=== PATIENT | male | born 1950 | race Two or more races ===

== ENCOUNTER 2020-10-29 18:51 | Inpatient (IN) | payer MEDICARE, MEDICAID ==
[~2020-10-29] VITALS: Ht 172.7 cm; Wt 68.0 kg
[2020-10-29 19:38] LABS: BASOPHILS % 0.3 % (0.0-2.0); EOSINOPHILS % 0.5 % (0.0-5.0); HEMATOCRIT. 37.6 % (42.0-52.0); HEMOGLOBIN. 12.2 g/dL (14.0-18.0); LYMPHOCYTES % 13.3 % (20.0-50.0); MEAN CORPUSCULAR HEMOGLOBIN 29.6 pg (28.0-32.0); MEAN CORPUSCULAR VOLUME 91.3 fL (80.0-94.0); NEUTROPHILS % 79.9 % (40.0-76.0); PLATELET 98 x1000/uL (130-400); RED BLOOD CELL COUNT 4.12 mill/uL (4.7-6.1); RED CELL DISTRIBUTION WIDTH 17.3 % (11.6-14.6)
[2020-10-29 19:45] LABS: CHLORIDE 108 mEq/L (98-107)
[2020-10-29 19:49] LABS: ETHANOL BLOOD < 10 mg/dL
[2020-10-29 23:25] LABS: CLARITY URINE TURBID (CLEAR); COLOR URINE YELLOW (YELLOW); KETONES URINE NEGATIVE (NEGATIVE); LEUKOCYTE ESTERASE URINE 3+ (NEGATIVE); NITRITE URINE POSITIVE (NEGATIVE); OCCULT BLOOD URINE 2+ (NEGATIVE); PROTEIN URINE 1+ (NEGATIVE); SPECIFIC GRAVITY URINE 1.023 (1.005-1.030)
[2020-10-29 23:42] LABS: *AMPHETAMINES SCREEN URINE NEGATIVE (NEGATIVE)
[2020-10-29 23:43] LABS: *BARBITURATES SCREEN URINE NEGATIVE (NEGATIVE); *BENZODIAZEPINES SCREEN URINE NEGATIVE (NEGATIVE); *COCAINE SCREEN URINE NEGATIVE (NEGATIVE); METHADONE URINE SCREEN NEGATIVE (NEGATIVE); OPIATES URINE SCREEN NEGATIVE (NEGATIVE); PHENCYCLIDINE URINE SCREEN NEGATIVE (NEGATIVE)
[2020-10-29 23:44] LABS: CANNABINOID URINE SCREEN NEGATIVE (NEGATIVE)
[2020-10-29] MEDS ORDERED: ONDANSETRON HCL 4MG/2ML INJ IV PRN (23:45)
[2020-10-29] MEDS ORDERED: MAGNESIUM/ALUMINUM HYDROXIDE/SIMETHICONE 30ML UDC PO PRN (23:45)
[2020-10-29] MEDS ORDERED: DOCUSATE SODIUM 100MG CAPSULE PO PRN (23:45)
[2020-10-29] MEDS ORDERED: ACETAMINOPHEN 650MG SUPP PR PRN ×2 (23:45)
[2020-10-29] MEDS ORDERED: GUAIFENESIN 200MG/10ML SUGAR FREE UDC PO PRN (23:45)
[2020-10-29] MEDS ORDERED: ACETAMINOPHEN 650MG/20.3ML UDC GT PRN ×2 (23:45)
[2020-10-30] MEDS: DEXT 5%/0.45% NACL 1000ML 1,000 ML IV SCH ×2 (00:06→17:29)
[2020-10-30 04:00] VITALS: BP_SYST 161; BP_DIAS 69; BP_DIAS 89
[2020-10-30 06:56] VITALS: BP 152/78
[2020-10-30 07:13] LABS: BASOPHILS % 0.2 % (0.0-2.0); EOSINOPHILS % 0.9 % (0.0-5.0); HEMATOCRIT. 37.8 % (42.0-52.0); HEMOGLOBIN. 12.3 g/dL (14.0-18.0); MEAN CORPUSCULAR HEMOGLOBIN 29.6 pg (28.0-32.0); MEAN PLATELET VOLUME 8.2 fl (7.4-10.4); MONOCYTES % 9.1 % (2.0-8.0); NEUTROPHILS % 70.8 % (40.0-76.0); PLATELET 98 x1000/uL (130-400); RED BLOOD CELL COUNT 4.15 mill/uL (4.7-6.1); RED CELL DISTRIBUTION WIDTH 16.9 % (11.6-14.6)
[2020-10-30 07:19] LABS: CHLORIDE 108 mEq/L (98-107)
[2020-10-30 07:27] LABS: LDL CHOLESTEROL 68 mg/dL (5-100)
[2020-10-30 07:28] LABS: CREATINE KINASE 37 IU/L (39-308); CREATINE KINASE MB FRACTION 1.5 ng/mL (0.5-3.6); HDL CHOLESTEROL 36 mg/dL (40-59)
[2020-10-30 08:00] VITALS: BP 153/63
[2020-10-30] MEDS ORDERED: ATOR-2 PO (08:32)
[2020-10-30] MEDS ORDERED: TAMS-11 PO (08:32)
[2020-10-30] MEDS ORDERED: APIX5TAB PO (08:32)
[2020-10-30] MEDS ORDERED: ALLO300T2 PO (08:32)
[2020-10-30] MEDS ORDERED: PANT40TA51 PO (08:32)
[2020-10-30] MEDS ORDERED: SERT-422 PO (08:32)
[2020-10-30] MEDS ORDERED: PRED5TAB PO (08:32)
[2020-10-30 09:58] LABS: T4 FREE 1.65 ng/dL (0.76-1.46)
[2020-10-30] MEDS: LEVOFLOXACIN 500MG TABLET PO SCH (11:11)
[2020-10-30 16:11] LABS: CREATINE KINASE MB FRACTION 2.1 ng/mL (0.5-3.6)
[2020-10-30] MEDS: APIXABAN 5 MG TABLET PO SCH (17:29)
[2020-10-30 20:00] VITALS: BP 174/52
[2020-10-30] MEDS: ATORVASTATIN CALCIUM 40MG TABLET PO SCH (21:34)
[2020-10-30] MEDS: PANTOPRAZOLE 40MG DR TABLET PO SCH (21:34)
[2020-10-30] MEDS: TAMSULOSIN HCL 0.4MG SR CAPSULE PO SCH (21:34)
[2020-10-30] MEDS: CLONIDINE 0.1MG TABLET PO PRN (21:37)
[2020-10-31] VITALS: BP 148/54
[2020-10-31 04:00] VITALS: BP 137/55
[2020-10-31] MEDS: DEXT 5%/0.45% NACL 1000ML 1,000 ML IV SCH ×2 (08:13→15:45)
[2020-10-31] MEDS: APIXABAN 5 MG TABLET PO SCH ×2 (08:14→17:15)
[2020-10-31] MEDS: ALLOPURINOL 300 MG TABLET PO SCH (08:14)
[2020-10-31] MEDS: SERTRALINE HCL 50MG TABLET PO SCH (08:14)
[2020-10-31] MEDS: PREDNISONE 5MG TABLET PO SCH (08:16)
[2020-10-31 08:30] VITALS: BP 154/58
[2020-10-31] MEDS: LEVOFLOXACIN 500MG TABLET PO SCH (11:08)
[2020-10-31 12:00] VITALS: BP 138/79
[2020-10-31 15:57] LABS: BASOPHILS % 0.1 % (0.0-2.0); EOSINOPHILS % 0.3 % (0.0-5.0); HEMATOCRIT. 35.9 % (42.0-52.0); HEMOGLOBIN. 11.8 g/dL (14.0-18.0); LYMPHOCYTES % 14.5 % (20.0-50.0); MEAN CORPUSCULAR HEMOGLOBIN 29.8 pg (28.0-32.0); MEAN CORPUSCULAR VOLUME 90.5 fL (80.0-94.0); MEAN PLATELET VOLUME 8.2 fl (7.4-10.4); MONOCYTES % 6.3 % (2.0-8.0); NEUTROPHILS % 78.8 % (40.0-76.0); PLATELET 99 x1000/uL (130-400); RED BLOOD CELL COUNT 3.97 mill/uL (4.7-6.1); RED CELL DISTRIBUTION WIDTH 16.7 % (11.6-14.6)
[2020-10-31 16:00] VITALS: BP 144/66
[2020-10-31 16:16] LABS: CHLORIDE 106 mEq/L (98-107)
[2020-10-31] MEDS: TAMSULOSIN HCL 0.4MG SR CAPSULE PO SCH (21:31)
[2020-10-31] MEDS: PANTOPRAZOLE 40MG DR TABLET PO SCH (21:32)
[2020-10-31] MEDS: ATORVASTATIN CALCIUM 40MG TABLET PO SCH (21:32)
[2020-11-01] VITALS (7 sets, daily range): BP systolic 114–174; BP diastolic 47–87
[2020-11-01] MEDS: DEXT 5%/0.45% NACL 1000ML 1,000 ML IV SCH ×2 (04:11→17:18)
[2020-11-01] MEDS: CLONIDINE 0.1MG TABLET PO PRN (05:27)
[2020-11-01] MEDS: ALLOPURINOL 300 MG TABLET PO SCH (08:04)
[2020-11-01] MEDS: PREDNISONE 5MG TABLET PO SCH (08:04)
[2020-11-01] MEDS: SERTRALINE HCL 50MG TABLET PO SCH (08:04)
[2020-11-01] MEDS: APIXABAN 5 MG TABLET PO SCH ×2 (08:04→17:18)
[2020-11-01] MEDS: LEVOFLOXACIN 500MG TABLET PO SCH (11:14)
[2020-11-01] MEDS: TAMSULOSIN HCL 0.4MG SR CAPSULE PO SCH (21:27)
[2020-11-01] MEDS: ATORVASTATIN CALCIUM 40MG TABLET PO SCH (21:27)
[2020-11-01] MEDS: PANTOPRAZOLE 40MG DR TABLET PO SCH (21:27)
== END 2020-11-01 22:00 | disposition short-term general hospital (02) | DRG 391 ==
LOC: ER 19:32 → MICUSO 22:42 → 6WST 10-30 01:38
PROVIDERS: ADMIT Family Medicine; ATTEND Family Medicine
DX: K21.9 Gastro-esophageal reflux disease without esophagitis (principal); G93.41 Metabolic encephalopathy; N39.0 Urinary tract infection, site not specified; E44.0 Moderate protein-calorie malnutrition; I25.10 Atherosclerotic heart disease of native coronary artery without angina pectoris; D64.9 Anemia, unspecified; I35.0 Nonrheumatic aortic (valve) stenosis; F32.9 Major depressive disorder, single episode, unspecified; E78.5 Hyperlipidemia, unspecified; M10.9 Gout, unspecified; N40.0 Benign prostatic hyperplasia without lower urinary tract symptoms; D69.6 Thrombocytopenia, unspecified; I87.8 Other specified disorders of veins; I87.2 Venous insufficiency (chronic) (peripheral); Z20.822 Contact with and (suspected) exposure to COVID-19; I73.9 Peripheral vascular disease, unspecified; J44.9 Chronic obstructive pulmonary disease, unspecified; I10 Essential (primary) hypertension; I48.0 Paroxysmal atrial fibrillation; Z86.73 Personal history of transient ischemic attack (TIA), and cerebral infarction without residual deficits; Z79.899 Other long term (current) drug therapy; Z79.01 Long term (current) use of anticoagulants; Z68.22 Body mass index [BMI] 22.0-22.9, adult
CPT/HCPCS: 36415; 71045; 80053; 80061; 80305; 80320; 81003; 82550; 82553; 82962; 83036; 83605; 83735; 83880; 84439; 84443; 84484; 85025; 85379; 87426; 93005; 93306; 93308; 93923; 93970; 99285; J7512; G0480

== ENCOUNTER 2020-11-25 20:27 | Inpatient (IN) | payer MEDICARE, MEDICAID ==
[~2020-11-25] VITALS: Ht 167.6 cm; Wt 78.0 kg
[~2020-11-25 20:27] MED LIST: ALLO300T2 PO; APIX5TAB PO; ATOR-2 PO; PANT40TA51 PO; PRED5TAB PO; SERT-422 PO; TAMS-11 PO
[2020-11-25] MEDS ORDERED: DEXT 5%/0.9% NACL 1,000 ML IV ONE (22:15)
[2020-11-25] MEDS ORDERED: BLOOD SUGAR DIAGNOSTIC STRIP TEST ONE (22:15)
[2020-11-25] MEDS ORDERED: DEXTROSE 50% WATER 50ML SYRINGE IV ONE (22:30)
[2020-11-25] MEDS ORDERED: PIPERACILLIN/TAZ 3.375G PREMIX 50 ML IV ONE (22:30)
[2020-11-25 23:31] LABS: CLARITY URINE CLEAR (CLEAR); COLOR URINE YELLOW (YELLOW); KETONES URINE NEGATIVE (NEGATIVE); LEUKOCYTE ESTERASE URINE TRACE (NEGATIVE); NITRITE URINE POSITIVE (NEGATIVE); OCCULT BLOOD URINE NEGATIVE (NEGATIVE); PROTEIN URINE NEGATIVE (NEGATIVE); SPECIFIC GRAVITY URINE 1.024 (1.005-1.030)
[2020-11-25 23:53] LABS: BASOPHILS % 0.4 % (0.0-2.0); HEMATOCRIT. 39.5 % (42.0-52.0); HEMOGLOBIN. 12.5 g/dL (14.0-18.0); LYMPHOCYTES % 18.1 % (20.0-50.0); MEAN CORPUSCULAR HEMOGLOBIN 29.1 pg (28.0-32.0); MEAN CORPUSCULAR VOLUME 91.8 fL (80.0-94.0); MEAN PLATELET VOLUME 8.1 fl (7.4-10.4); NEUTROPHILS % 71.5 % (40.0-76.0); PLATELET 133 x1000/uL (130-400); RED CELL DISTRIBUTION WIDTH 16.9 % (11.6-14.6)
[2020-11-26] VITALS (7 sets, daily range): BP systolic 112–167; BP diastolic 52–77
[2020-11-26] LABS: CHLORIDE 108 mEq/L (98-107)
[2020-11-26 00:07] LABS: ETHANOL BLOOD < 10 mg/dL
[2020-11-26 00:10] LABS: *AMPHETAMINES SCREEN URINE NEGATIVE (NEGATIVE); *BARBITURATES SCREEN URINE NEGATIVE (NEGATIVE)
[2020-11-26 00:11] LABS: *BENZODIAZEPINES SCREEN URINE NEGATIVE (NEGATIVE); *COCAINE SCREEN URINE NEGATIVE (NEGATIVE)
[2020-11-26 00:12] LABS: METHADONE URINE SCREEN NEGATIVE (NEGATIVE); OPIATES URINE SCREEN NEGATIVE (NEGATIVE); PHENCYCLIDINE URINE SCREEN NEGATIVE (NEGATIVE)
[2020-11-26 00:13] LABS: CANNABINOID URINE SCREEN NEGATIVE (NEGATIVE)
[2020-11-26] MEDS: HYDRALAZINE HCL 10MG TABLET PO SCH ×3 (05:34→17:04)
[2020-11-26 06:42] LABS: CHLORIDE 106 mEq/L (98-107)
[2020-11-26 06:48] LABS: HEMATOCRIT 40.7 % (42.0-52.0); HEMOGLOBIN 12.9 g/dL (14.0-18.0); MEAN CORPUSCULAR HEMOGLOBIN 29.1 pg (28.0-32.0); MEAN CORPUSCULAR VOLUME 91.6 fL (80.0-94.0); RED BLOOD CELL COUNT 4.44 mill/uL (4.7-6.1); RED CELL DISTRIBUTION WIDTH 16.7 % (11.6-14.6)
[2020-11-26] MEDS ORDERED: ENOXAPARIN 40MG/0.4ML SYR SUBCUT SCH ×2 (09:00→16:00)
[2020-11-26] MEDS ORDERED: ATOR-2 PO (09:31)
[2020-11-26 11:00] LABS: PLATELET 124 x1000/uL (130-400)
[2020-11-26] MEDS ORDERED: ACETAMINOPHEN 325MG TABLET PO PRN (16:00)
[2020-11-26] MEDS ORDERED: ACETAMINOPHEN 650MG SUPP PR PRN ×2 (16:00)
[2020-11-26] MEDS ORDERED: CLONIDINE 0.1MG TABLET PO PRN (16:00)
[2020-11-26] MEDS ORDERED: NA PHOS,M-B/NA PHOS,DI-BA ENEMA 118ML PR PRN (16:00)
[2020-11-26] MEDS ORDERED: DIPHENHYDRAMINE 50MG/ML VIAL IV PRN (16:00)
[2020-11-26] MEDS ORDERED: ACETAMINOPHEN 650MG/20.3ML UDC GT PRN ×2 (16:00)
[2020-11-26] MEDS: ALLOPURINOL 300 MG TABLET PO SCH (17:00)
[2020-11-26] MEDS: DEXT 5%/0.45% NACL 1000ML 1,000 ML IV SCH (17:00)
[2020-11-26] MEDS: PREDNISONE 5MG TABLET PO SCH (17:04)
[2020-11-26] MEDS: TAMSULOSIN HCL 0.4MG SR CAPSULE PO SCH (20:23)
[2020-11-26] MEDS: APIXABAN 5 MG TABLET PO SCH (20:24)
[2020-11-26] MEDS ORDERED: PANTOPRAZOLE 40MG DR TABLET PO SCH (21:00)
[2020-11-26 23:37] LABS: CREATINE KINASE MB FRACTION 1.8 ng/mL (0.5-3.6)
[2020-11-27] VITALS: BP 178/79
[2020-11-27] MEDS: HYDRALAZINE HCL 10MG TABLET PO SCH ×4 (00:13→17:36)
[2020-11-27 04:00] VITALS: BP 108/52
[2020-11-27] MEDS: DEXT 5%/0.45% NACL 1000ML 1,000 ML IV SCH ×2 (06:23→18:11)
[2020-11-27] MEDS ORDERED: DEXTROSE 50% WATER 50ML SYRINGE IV PRN (07:15)
[2020-11-27 07:19] LABS: BASOPHILS % 0.2 % (0.0-2.0); EOSINOPHILS % 0.8 % (0.0-5.0); HEMATOCRIT. 36.1 % (42.0-52.0); HEMOGLOBIN. 11.5 g/dL (14.0-18.0); LYMPHOCYTES % 27.8 % (20.0-50.0); MEAN PLATELET VOLUME 8.5 fl (7.4-10.4); MONOCYTES % 6.3 % (2.0-8.0); NEUTROPHILS % 64.9 % (40.0-76.0); PLATELET 126 x1000/uL (130-400); RED BLOOD CELL COUNT 3.97 mill/uL (4.7-6.1); RED CELL DISTRIBUTION WIDTH 16.5 % (11.6-14.6)
[2020-11-27 08:00] VITALS: BP 126/59
[2020-11-27 08:05] LABS: CHLORIDE 106 mEq/L (98-107)
[2020-11-27 08:54] LABS: LDL CHOLESTEROL 66 mg/dL (5-100)
[2020-11-27 08:55] LABS: CREATINE KINASE 38 IU/L (39-308); HDL CHOLESTEROL 36 mg/dL (40-59)
[2020-11-27 08:57] LABS: CREATINE KINASE MB FRACTION 1.5 ng/mL (0.5-3.6)
[2020-11-27] MEDS: APIXABAN 5 MG TABLET PO SCH ×2 (09:01→22:05)
[2020-11-27] MEDS: ALLOPURINOL 300 MG TABLET PO SCH (09:01)
[2020-11-27] MEDS: SERTRALINE HCL 50MG TABLET PO SCH (09:02)
[2020-11-27] MEDS: PREDNISONE 5MG TABLET PO SCH (09:02)
[2020-11-27] MEDS: ACETAMINOPHEN 325MG TABLET PO PRN ×2 (09:02→18:06)
[2020-11-27 12:00] VITALS: BP 128/72
[2020-11-27] MEDS: BLOOD SUGAR DIAGNOSTIC STRIP TEST SCH ×3 (12:25→21:00)
[2020-11-27 16:00] VITALS: BP 108/51
[2020-11-27 20:00] VITALS: BP 133/51
[2020-11-27] MEDS: FAMOTIDINE 20MG TABLET PO SCH (22:05)
[2020-11-27] MEDS: TAMSULOSIN HCL 0.4MG SR CAPSULE PO SCH (22:05)
[2020-11-28] VITALS (7 sets, daily range): BP systolic 96–151; BP diastolic 47–68
[2020-11-28] MEDS: HYDRALAZINE HCL 10MG TABLET PO SCH ×3 (00:17→12:00)
[2020-11-28] MEDS: ACETAMINOPHEN 325MG TABLET PO PRN (00:18)
[2020-11-28] MEDS: BLOOD SUGAR DIAGNOSTIC STRIP TEST SCH ×2 (05:20→11:32)
[2020-11-28] MEDS ORDERED: ZINC SULFATE 220 MG ( 50 ) CAPSULE PO SCH (09:00)
[2020-11-28] MEDS ORDERED: ASCORBIC ACID 250 MG TABLET PO SCH (09:00)
[2020-11-28] MEDS: DEXT 5%/0.45% NACL 1000ML 1,000 ML IV SCH (09:52)
[2020-11-28] MEDS: PREDNISONE 5MG TABLET PO SCH (09:53)
[2020-11-28] MEDS: ALLOPURINOL 300 MG TABLET PO SCH (09:53)
[2020-11-28] MEDS: SERTRALINE HCL 50MG TABLET PO SCH (09:53)
[2020-11-28] MEDS: APIXABAN 5 MG TABLET PO SCH (09:53)
[2020-11-28] MEDS: FAMOTIDINE 20MG TABLET PO SCH (09:53)
== END 2020-11-28 16:10 | disposition home health service (06) | DRG 70 ==
LOC: ER 20:27 → 8WST 22:18 → ENRESERV 22:48
PROVIDERS: ADMIT Family Medicine; ATTEND Family Medicine
PROC: 0HBRXZZ Excision of Toe Nail, External Approach (ICD-10-PCS; principal; 2020-11-27)
PROC: 0HBRXZZ Excision of Toe Nail, External Approach (ICD-10-PCS; 2020-11-27)
PROC: 0HBRXZZ Excision of Toe Nail, External Approach (ICD-10-PCS; 2020-11-27)
PROC: 0HBRXZZ Excision of Toe Nail, External Approach (ICD-10-PCS; 2020-11-27)
PROC: 0HBRXZZ Excision of Toe Nail, External Approach (ICD-10-PCS; 2020-11-27)
PROC: 0HBRXZZ Excision of Toe Nail, External Approach (ICD-10-PCS; 2020-11-27)
PROC: 0HBRXZZ Excision of Toe Nail, External Approach (ICD-10-PCS; 2020-11-27)
PROC: 0HBRXZZ Excision of Toe Nail, External Approach (ICD-10-PCS; 2020-11-27)
PROC: 0HBRXZZ Excision of Toe Nail, External Approach (ICD-10-PCS; 2020-11-27)
PROC: 0HBRXZZ Excision of Toe Nail, External Approach (ICD-10-PCS; 2020-11-27)
DX: G93.41 Metabolic encephalopathy (principal); L89.153 Pressure ulcer of sacral region, stage 3; E44.0 Moderate protein-calorie malnutrition; I69.354 Hemiplegia and hemiparesis following cerebral infarction affecting left non-dominant side; J98.11 Atelectasis; E16.2 Hypoglycemia, unspecified; D64.9 Anemia, unspecified; E78.5 Hyperlipidemia, unspecified; J44.9 Chronic obstructive pulmonary disease, unspecified; N40.0 Benign prostatic hyperplasia without lower urinary tract symptoms; R13.10 Dysphagia, unspecified; K21.9 Gastro-esophageal reflux disease without esophagitis; M10.9 Gout, unspecified; I10 Essential (primary) hypertension; I87.8 Other specified disorders of veins; L60.2 Onychogryphosis; I87.2 Venous insufficiency (chronic) (peripheral); I73.9 Peripheral vascular disease, unspecified; Z74.01 Bed confinement status; Z79.01 Long term (current) use of anticoagulants; Z79.899 Other long term (current) drug therapy; Z68.27 Body mass index [BMI] 27.0-27.9, adult
CPT/HCPCS: 36415; 71045; 80048; 80053; 80061; 80305; 80320; 81003; 82040; 82140; 82550; 82553; 82962; 83605; 84134; 84484; 85025; 85027; 87077; 87186; 92610; 93005; 96365; 99291; J1650; J2543; J7042; J7070; J7512; G0480

== ENCOUNTER 2021-11-02 03:49 | Inpatient (IN) | payer MEDICARE, MEDICAID ==
[~2021-11-02] VITALS: Ht 167.6 cm; Wt 65.8 kg
[2021-11-02] VITALS (8 sets, daily range): BP systolic 117–163; BP diastolic 69–92
[2021-11-02] MEDS ORDERED: ALBUTEROL (0.083%) 2.5MG/3ML NEB HHN STA (04:03)
[2021-11-02] MEDS ORDERED: VANCOMYCIN 1G PREMIX 200 ML IV SCH (04:15)
[2021-11-02] MEDS ORDERED: PIPERACILLIN/TAZ 3.375G PREMIX 50 ML IV ONE (04:15)
[2021-11-02] MEDS ORDERED: DEXAMETHASONE 4MG/ML 1ML VIAL IV ONE (04:15)
[2021-11-02] MEDS ORDERED: SODIUM CHLORIDE 0.9% 500 ML IV ONE (04:15)
[2021-11-02 05:25] LABS: BASOPHILS % 0.2 % (0.0-2.0); EOSINOPHILS % 0.6 % (0.0-5.0); HEMATOCRIT. 40.7 % (42.0-52.0); LYMPHOCYTES % 20.1 % (20.0-50.0); MEAN CORPUSCULAR HEMOGLOBIN 28.6 pg (28.0-32.0); MEAN CORPUSCULAR VOLUME 89.9 fL (80.0-94.0); MONOCYTES % 5.3 % (2.0-8.0); NEUTROPHILS % 73.8 % (40.0-76.0); PLATELET 144 x1000/uL (130-400); RED BLOOD CELL COUNT 4.53 mill/uL (4.7-6.1); RED CELL DISTRIBUTION WIDTH 19.1 % (11.6-14.6)
[2021-11-02 05:30] LABS: CHLORIDE 106 mEq/L (98-107)
[2021-11-02 05:35] LABS: ETHANOL BLOOD < 10 mg/dL
[2021-11-02 05:40] LABS: CREATINE KINASE 55 IU/L (39-308)
[2021-11-02] MEDS ORDERED: FUROSEMIDE 20MG/2ML VIAL IVP NR (06:15)
[2021-11-02 07:08] LABS: CLARITY URINE CLOUDY (CLEAR); COLOR URINE DARK YELLOW (YELLOW); KETONES URINE NEGATIVE (NEGATIVE); LEUKOCYTE ESTERASE URINE 3+ (NEGATIVE); NITRITE URINE NEGATIVE (NEGATIVE); OCCULT BLOOD URINE 2+ (NEGATIVE); PROTEIN URINE 1+ (NEGATIVE); SPECIFIC GRAVITY URINE 1.025 (1.005-1.030)
[2021-11-02] MEDS ORDERED: MAGNESIUM/ALUMINUM HYDROXIDE/SIMETHICONE 30ML UDC PO PRN (07:15)
[2021-11-02] MEDS ORDERED: DOCUSATE SODIUM 100MG CAPSULE PO PRN (07:15)
[2021-11-02] MEDS ORDERED: NITROGLYCERIN 0.4MG TABLET SL SL PRN (07:15)
[2021-11-02] MEDS ORDERED: ZOLPIDEM TARTRATE 5MG TABLET PO PRN (07:15)
[2021-11-02] MEDS ORDERED: ACETAMINOPHEN 325MG TABLET PO PRN ×2 (07:15)
[2021-11-02] MEDS ORDERED: IPRATROPIUM/ALBUTEROL 0.5-3(2.5)MG/3ML NEB NEB PRN (07:15)
[2021-11-02] MEDS ORDERED: GUAIFENESIN 200MG/10ML SUGAR FREE UDC PO PRN (07:15)
[2021-11-02] MEDS ORDERED: ONDANSETRON HCL 4MG/2ML INJ IV PRN (07:15)
[2021-11-02] MEDS ORDERED: CLONIDINE 0.1MG TABLET PO PRN (07:15)
[2021-11-02 07:41] LABS: *AMPHETAMINES SCREEN URINE NEGATIVE (NEGATIVE); *BARBITURATES SCREEN URINE NEGATIVE (NEGATIVE); *BENZODIAZEPINES SCREEN URINE PRESUMTIVE POSITIVE (NEGATIVE); *COCAINE SCREEN URINE NEGATIVE (NEGATIVE); CANNABINOID URINE SCREEN NEGATIVE (NEGATIVE); METHADONE URINE SCREEN NEGATIVE (NEGATIVE); OPIATES URINE SCREEN NEGATIVE (NEGATIVE); PHENCYCLIDINE URINE SCREEN NEGATIVE (NEGATIVE)
[2021-11-02] MEDS ORDERED: CARVEDILOL 3.125 MG TABLET PO SCH (09:00)
[2021-11-02] MEDS: SPIRONOLACTONE 25MG TABLET PO SCH (09:00)
[2021-11-02] MEDS: APIXABAN 5 MG TABLET PO SCH (09:00)
[2021-11-02] MEDS: FAMOTIDINE 20MG TABLET PO SCH (09:00)
[2021-11-02] MEDS: ASPIRIN 81MG EC TABLET PO SCH (09:00)
[2021-11-02 09:06] LABS: FOLIC ACID (FOLATE) SERUM 8.2 ng/mL (>5.38)
[2021-11-02] MEDS ORDERED: ADENOSINE 3 MG/ML 2ML VIAL IV ONE ×2 (10:30)
[2021-11-02 10:42] LABS: BG BASE EXCESS 0.7 mmol/L (-2.0-2.0); BG CARBOXYHEMOGLOBIN 1.1 % (0.5-1.5); BG DEOXYHEMOGLOBIN 5.3 % (0.0-5.0); BG FRACTION INSPIRED OXYGEN 30; BG HCO3 ACT 26.9 mmol/L (22.0-26.0); BG METHEMOGLOBIN 0.3 % (0.0-1.5); BG OXYGEN SATURATION 94.6 % (92.0-98.5); BG OXYHEMOGLOBIN 93.3 % (94.0-97.0); BG PCO2 48.9 mmHg (35.0-45.0); BG PH 7.358 (7.350-7.450); BG PO2 74.5 mmHg (75.0-100.0); BG SAMPLE SITE LEFT RADIAL; BG TOTAL RESPIRATORY RATE 26 b/min; BG VENT MODE MASK - BIPAP
[2021-11-02] MEDS ORDERED: METOPROLOL TARTRATE 5MG/5ML VIAL IV PRN (12:30)
[2021-11-02] MEDS ORDERED: DIGOXIN 500MCG/2ML AMP IV SCH (13:45)
[2021-11-02] MEDS: IPRATROPIUM/ALBUTEROL 0.5-3(2.5)MG/3ML NEB HHN SCH (14:00)
[2021-11-02] MEDS: FUROSEMIDE 40MG/4ML VIAL IVP SCH (18:24)
[2021-11-02] MEDS: DIGOXIN 500MCG/2ML AMP IV SCH (18:25)
[2021-11-03] VITALS (18 sets, daily range): BP systolic 97–145; BP diastolic 50–89
[2021-11-03 00:20] LABS: CREATINE KINASE MB FRACTION 3.5 ng/mL (0.5-3.6)
[2021-11-03] MEDS: SPIRONOLACTONE 25MG TABLET PO SCH ×3 (00:41→20:44)
[2021-11-03] MEDS: APIXABAN 5 MG TABLET PO SCH ×3 (00:41→20:46)
[2021-11-03] MEDS: FAMOTIDINE 20MG TABLET PO SCH ×3 (00:42→20:44)
[2021-11-03] MEDS: IPRATROPIUM/ALBUTEROL 0.5-3(2.5)MG/3ML NEB HHN SCH ×4 (01:40→21:24)
[2021-11-03] MEDS: METOPROLOL TARTRATE 25MG TABLET PO SCH ×3 (02:20→21:00)
[2021-11-03] MEDS: FUROSEMIDE 40MG/4ML VIAL IVP SCH ×2 (06:28→18:22)
[2021-11-03 08:38] LABS: CHLORIDE 104 mEq/L (98-107)
[2021-11-03 08:43] LABS: BASOPHILS % 0.1 % (0.0-2.0); EOSINOPHILS % 0.2 % (0.0-5.0); HEMATOCRIT. 38.4 % (42.0-52.0); HEMOGLOBIN. 12.9 g/dL (14.0-18.0); LYMPHOCYTES % 12.7 % (20.0-50.0); MEAN CORPUSCULAR HEMOGLOBIN 29.6 pg (28.0-32.0); MEAN PLATELET VOLUME 7.8 fl (7.4-10.4); MONOCYTES % 7.1 % (2.0-8.0); NEUTROPHILS % 79.9 % (40.0-76.0); PLATELET 143 x1000/uL (130-400); RED BLOOD CELL COUNT 4.37 mill/uL (4.7-6.1); RED CELL DISTRIBUTION WIDTH 19.1 % (11.6-14.6)
[2021-11-03 08:46] LABS: PHOSPHORUS 3.6 mg/dL (2.5-4.9)
[2021-11-03 08:51] LABS: CREATINE KINASE 59 IU/L (39-308)
[2021-11-03 08:53] LABS: CREATINE KINASE MB FRACTION 3.9 ng/mL (0.5-3.6)
[2021-11-03] MEDS: ASPIRIN 81MG EC TABLET PO SCH (09:18)
[2021-11-03] MEDS: DIGOXIN 500MCG/2ML AMP IV SCH (18:22)
[2021-11-03] MEDS: BLOOD SUGAR DIAGNOSTIC STRIP TEST SCH (22:01)
[2021-11-04] VITALS (14 sets, daily range): BP systolic 94–159; BP diastolic 56–81
[2021-11-04] MEDS: IPRATROPIUM/ALBUTEROL 0.5-3(2.5)MG/3ML NEB HHN SCH ×4 (01:37→20:47)
[2021-11-04] MEDS: FUROSEMIDE 40MG/4ML VIAL IVP SCH ×2 (06:25→17:53)
[2021-11-04] MEDS: BLOOD SUGAR DIAGNOSTIC STRIP TEST SCH ×4 (06:43→20:11)
[2021-11-04] MEDS: METOPROLOL TARTRATE 25MG TABLET PO SCH ×3 (09:00→21:54)
[2021-11-04] MEDS: FAMOTIDINE 20MG TABLET PO SCH ×2 (09:52→20:11)
[2021-11-04] MEDS: ASPIRIN 81MG EC TABLET PO SCH (09:52)
[2021-11-04] MEDS: SPIRONOLACTONE 25MG TABLET PO SCH ×2 (09:52→20:11)
[2021-11-04] MEDS: APIXABAN 5 MG TABLET PO SCH ×2 (09:52→20:11)
[2021-11-04] MEDS ORDERED: POTASSIUM CHLORIDE 20MEQ TABLET SR PO SCH (11:45)
[2021-11-04] MEDS: DIGOXIN 500MCG/2ML AMP IV SCH (17:53)
[2021-11-05] VITALS: BP 106/44
[2021-11-05] MEDS: IPRATROPIUM/ALBUTEROL 0.5-3(2.5)MG/3ML NEB HHN SCH ×2 (01:55→08:43)
[2021-11-05 04:00] VITALS: BP 109/55
[2021-11-05] MEDS: FUROSEMIDE 40MG/4ML VIAL IVP SCH (05:36)
[2021-11-05] MEDS: BLOOD SUGAR DIAGNOSTIC STRIP TEST SCH (05:52)
[2021-11-05] MEDS ORDERED: EPINEPHRINE 0.1MG/ML (1:10,000) 10ML SYR ONE (07:46)
[2021-11-05 08:00] VITALS: BP 125/61
[2021-11-05] MEDS ORDERED: DIGOXIN 500MCG/2ML AMP IV PRN (10:00)
[2021-11-06] MEDS ORDERED: FUROSEMIDE 40MG TABLET PO SCH (09:00)
== END 2021-11-05 14:40 | DRG 853 ==
LOC: ER 03:57 → 3WST 06:05 → EDBEDREQ 06:11 → EDBEDREQTM 06:11 → EDBEDREQSVC 06:11 → SUPCPDRO 07:04 → EDBEDREQSVC 12:02 → ENRESERV 14:02 → 3WST 16:21 → 5WST 11-04 23:49
PROVIDERS: ADMIT Internal Medicine; ATTEND Internal Medicine
PROC: 5A09357 Assistance with Respiratory Ventilation, Less than 24 Consecutive Hours, Continuous Positive Airway Pressure (ICD-10-PCS; 2021-11-02)
PROC: 0JBP0ZZ Excision of Left Lower Leg Subcutaneous Tissue and Fascia, Open Approach (ICD-10-PCS; principal; 2021-11-04)
PROC: 5A12012 Performance of Cardiac Output, Single, Manual (ICD-10-PCS; 2021-11-05)
PROC: 5A2204Z Restoration of Cardiac Rhythm, Single (ICD-10-PCS; 2021-11-05)
PROC: 06HY33Z Insertion of Infusion Device into Lower Vein, Percutaneous Approach (ICD-10-PCS; 2021-11-05)
PROC: 0BH17EZ Insertion of Endotracheal Airway into Trachea, Via Natural or Artificial Opening (ICD-10-PCS; 2021-11-05)
DX: A41.9 Sepsis, unspecified organism (principal); J18.9 Pneumonia, unspecified organism; J96.01 Acute respiratory failure with hypoxia; J96.02 Acute respiratory failure with hypercapnia; G92.8 Other toxic encephalopathy; I50.43 Acute on chronic combined systolic (congestive) and diastolic (congestive) heart failure; E44.0 Moderate protein-calorie malnutrition; N39.0 Urinary tract infection, site not specified; D68.59 Other primary thrombophilia; I47.1 Supraventricular tachycardia; Z20.822 Contact with and (suspected) exposure to COVID-19; R65.20 Severe sepsis without septic shock; I48.0 Paroxysmal atrial fibrillation; I35.0 Nonrheumatic aortic (valve) stenosis; I25.2 Old myocardial infarction; I25.10 Atherosclerotic heart disease of native coronary artery without angina pectoris; I11.0 Hypertensive heart disease with heart failure; I73.9 Peripheral vascular disease, unspecified; D64.9 Anemia, unspecified; I46.9 Cardiac arrest, cause unspecified; S81.802A Unspecified open wound, left lower leg, initial encounter; X58.XXXA Exposure to other specified factors, initial encounter; F03.90 Unspecified dementia, unspecified severity, without behavioral disturbance, psychotic disturbance, mood disturbance, and anxiety; R62.7 Adult failure to thrive; Z79.01 Long term (current) use of anticoagulants; Z86.73 Personal history of transient ischemic attack (TIA), and cerebral infarction without residual deficits; Z68.23 Body mass index [BMI] 23.0-23.9, adult; Y93.89 Activity, other specified; Y92.89 Other specified places as the place of occurrence of the external cause; Y99.8 Other external cause status
CPT/HCPCS: 36415; 36600; 71045; 80053; 80305; 80320; 81003; 82375; 82550; 82553; 82607; 82746; 82805; 82962; 83540; 83550; 83605; 83735; 83880; 84100; 84145; 84443; 84484; 85025; 86140; 87426; 92950; 93005; 93306; 93970; 94640; 94660; 99291; J0153; J1100; J1160; J1940; J2543; J3370; J3490; J7040; G0480